=== PATIENT | male | born 1985 | race American Indian/Alaskan Native ===

== ENCOUNTER 2018-06-03 09:10 | Emergency (ER) | payer OTHER ==
[2018-06-03 09:25] VITALS: BP 147/97
[2018-06-03] MEDS ORDERED: TORADOL IV ONE (09:54)
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
== END 2018-06-03 14:16 | disposition admitted as inpatient to this hospital (09) ==
LOC: ED 09:10
DX: S00.83XA Contusion of other part of head, initial encounter (principal); S61.401A Unspecified open wound of right hand, initial encounter; S16.1XXA Strain of muscle, fascia and tendon at neck level, initial encounter; V29.49XA Motorcycle driver injured in collision with other motor vehicles in traffic accident, initial encounter; Y93.89 Activity, other specified; Y92.488 Other paved roadways as the place of occurrence of the external cause; Y99.8 Other external cause status
CPT/HCPCS: 70450; 70486; 72125; 73030; 73120; 96374; 99284; J1885